=== PATIENT | female | born 2000 | race Caucasian/White ===

== ENCOUNTER 2018-03-19 20:11 | Emergency (ER) | payer MEDICAID, OTHER ==
[2018-03-19 20:35] VITALS: BP 100/64; PULSE 80; RESP 16; TEMP 98.7; O2SAT 98
--- NOTE | 2018-03-19 20:41 | C.PDOC ---
History Of Present Illness 17yo female, comes to ER for evaluation of right ankle pain since 10AM. Patient states she was going to the bathroom at work, she slipped and twisted her ankle. She reports she continued working and states the pain is worsened with ambulation. She denies any weakness, numbness or tingling. No other injury. Time Seen by Provider: 03/19/18 20:28 Chief Complaint (Nursing): Lower Extremity Problem/Injury History Per: Patient History/Exam Limitations: no limitations Onset/Duration Of Symptoms: Hrs Current Symptoms Are (Timing): Still Present Additional History Per: Patient - Ankle/Foot Description Of Injury: Fell Currently Unable To: Bear Weight Past Medical History Reviewed: Historical Data, Nursing Documentation, Vital Signs Vital Signs: Last Vital Signs Temp 98.7 F 03/19/18 20:32 Pulse 80 03/19/18 20:32 Resp 16 03/19/18 20:32 BP 100/64 03/19/18 20:32 Pulse Ox 98 03/19/18 21:04 - Medical History PMH: Bipolar Disorder (not medicated) Surgical History: No Surg Hx - [facility] PSYCHIA INTERV/EVAL NEC (08/13/14) Family History: States: No Known Family Hx - Social History Hx Alcohol Use: No Hx Substance Use: No - Immunization History Hx Tetanus Toxoid Vaccination: Yes Hx Influenza Vaccination: Yes Hx Pneumococcal Vaccination: No Review Of Systems Except As Marked, All Systems Reviewed And Found Negative. Musculoskeletal: Positive for: Foot Pain (right ankle pain) Neurological: Negative for: Weakness, Numbness Physical Exam - Physical Exam Appears: Non-toxic, No Acute Distress Skin: Normal Color, Warm, Dry Head: Atraumatic, Normacephalic Eye(s): bilateral: Normal Inspection, EOMI Nose: Normal Neck: Normal ROM, Supple Chest: Symmetrical Respiratory: No Accessory Muscle Use Extremity: Normal ROM, Tenderness (tenderness and swelling to right lateral ankle), No Pedal Edema, No Calf Tenderness, Capillary Refill (<2 sec), No Deformity, Swelling Pulses: Left Dorsalis Pedis: Normal, Right Dorsalis Pedis: Normal Neurological/Psych: Oriented x3, Normal Motor, Normal Sensation ED Course And Treatment O2 Sat by Pulse Oximetry: 98 (RA) Pulse Ox Interpretation: Normal - Other Rad XR Right ankle X-Ray: Interpreted by Me, Viewed By Me Interpretation: No fractures or dislocations noted. Progress Note: Patient given Motrin 600mg for pain relief. XR Right ankle ordered. Patient placed in aircast by soil conservation technician ; post-application exam shows neuorvscular sensations intact. Patient instructed on RICE method and informed to follow up with PMD and orthopedist in 2-3 days. Disposition - Disposition Referrals: Catherine Russell MD [Staff Provider] - Disposition: HOME/ ROUTINE Disposition Time: 20:40 Condition: STABLE Additional Instructions: Rest, ice and elevate the area. Follow up with bone doctor in 1 -2 days. Return to ER if symptoms persist or worsen. Prescriptions: Ibuprofen [Motrin] 600 mg PO Q6 PRN #20 tab PRN Reason: Pain, Mild (1-3) Instructions: Ankle Sprain (DC) Forms: [facility] (D[place]ib[place]ian), Work Excuse - Clinical Impression Clinical Impression: Ankle sprain - PA / GENERATION TECHNICIAN / Resident Statement MD/DO has reviewed & agrees with the documentation as recorded. - Scribe Statement The provider has reviewed the documentation as recorded by the Scribe (Lisa Rocha) Provider Attestation: All medical record entries made by the Scribe were at my direction and personally dictated by me. I have reviewed the chart and agree that the record accurately reflects my personal performance of the history, physical exam, medical decision making, and the department course for this patient. I have also personally directed, reviewed, and agree with the discharge instructions and disposition.
--- NOTE | 2018-03-20 09:09 | RAD ---
PROCEDURE: Right ankle dated 03/19/2018 HISTORY: Trauma COMPARISON: None FINDINGS: BONES: Normal. No fracture. JOINTS: Normal. No osteoarthritis. Ankle mortise maintained. Talar dome intact SOFT TISSUES: Normal. OTHER FINDINGS: None. IMPRESSION: No evidence of acute displaced fracture nor dislocation. If symptoms persist or occult fracture suspected clinically recommend repeat radiographs in 5-10 days as most fractures should become radiographically evident in this timeframe.
== END 2018-03-19 21:33 | disposition home or self-care (01) ==
LOC: C.ER 20:11
DX: S93.401A Sprain of unspecified ligament of right ankle, initial encounter (principal); W01.0XXA Fall on same level from slipping, tripping and stumbling without subsequent striking against object, initial encounter; Y92.89 Other specified places as the place of occurrence of the external cause; Y99.0 Civilian activity done for income or pay